=== PATIENT | male | born 1955 | race Caucasian/White ===

== ENCOUNTER 2017-04-02 12:27 | Day surgery (SDC) | payer OTHER ==
[2017-04-02] MEDS ORDERED: LIDOCAINE 1% W/EPI MPF 10 ML SOL ONE (12:38)
[2017-04-02] MEDS ORDERED: PROPOFOL 500 MG/50 ML EMU IV ONE ×3 (12:47→14:38)
[2017-04-02] MEDS ORDERED: LIDOCAINE HCL 1% MPF SOL ONE (12:47)
[2017-04-02] MEDS ORDERED: FENTANYL 100MCG/2ML SOL ONE (12:47)
[2017-04-02] MEDS ORDERED: ONDANSETRON HCL 4 MG/2 ML SOL ONE (12:47)
[2017-04-02] MEDS ORDERED: KETAMINE HYDROCHLORIDE 50 MG/ML SOL ONE (12:47)
[2017-04-02] MEDS ORDERED: MIDAZOLAM 2 MG/2 ML SOL ONE (12:47)
[2017-04-02] MEDS ORDERED: PROPOFOL 10 MG/ML EMU IV ONE (15:26)
[2017-04-02 16:39] VITALS: RESP 14
[2017-04-02 16:45] VITALS: BP 126/68; PULSE 80; TEMP 96.6; O2SAT 98
== END 2017-04-02 17:20 | disposition home or self-care (01) | DRG 301 ==
LOC: SURG 12:27
PROVIDERS: ATTEND Surgery
DX: I83.023 Varicose veins of left lower extremity with ulcer of ankle (principal); I83.013 Varicose veins of right lower extremity with ulcer of ankle
CPT/HCPCS: J2250; J2405; J3010; J2001; J2704